=== PATIENT | female | born 1965 | race Caucasian/White ===

== ENCOUNTER 2017-02-22 14:59 | Emergency (ER) | payer MEDICAID ==
[~2017-02-22] VITALS: Ht 149.9 cm; Wt 86.2 kg
[~2017-02-22 14:59] MED LIST: ASPI81CT89 PO; METF1000 PO
[2017-02-22 15:29] VITALS: BP 130/79
[2017-02-22] MEDS ORDERED: INSU100S22 SUBQ (15:34)
[2017-02-22] MEDS ORDERED: GABA300C PO (15:34)
[2017-02-22] MEDS ORDERED: GLIP5TAB13 PO (15:34)
--- NOTE | 2017-02-22 16:44 | NUR ---
Patient to bed 04.
--- NOTE | 2017-02-22 16:46 | NUR ---
51F BIB FAMILY C/O LOWER ABDOMINAL PAIN, BURNING, RADIATES UP MID-ABDOMEN, 07/02 X 1 WEEK; PT C/O NAUSEA & DIARRHEA, BUT DENIES VOMITING AT THIS TIME; PT STATES HAD 1 EPISODE OF DIARRHEA TODAY; ABDOMEN SOFT, NON-TENDER, ACTIVE BOWEL SOUNDS X 4 QUADRANTS; PT STATES HAS URINARY SYMPTOMS, URINARY INCONTINENCE, FREQUENCY, URGENCY & PAINFUL URINATION X 1 WEEK; PT A&OX4, PERRLA, BL LUNG SOUNDS CLEAR, RR EVEN/UNLABORED, SKIN IS WARM/DRY/INTACT AT THIS TIME; PT RESTING IN BED W/ HOB ELEVATED AND IN LOWEST POSITION; POSITIONED FOR COMFORT; ER MD MADE AWARE OF STATUS. WILL CONTINUE TO MONITOR.
--- NOTE | 2017-02-22 16:47 | NUR ---
Dr. Gil evaluating patient at bedside.
[2017-02-22 17:25] LABS: ANION GAP 12.6 (8-16); CALCIUM 9.5 mg/dL (8.5-10.1); CARBON DIOXIDE 27.8 mmol/L (21-32); CREATININE 0.7 mg/dL (0.6-1.3); POTASSIUM 3.4 mmol/L (3.5-5.1)
[2017-02-22] MEDS ORDERED: LEVOFLOXACIN 500 MG TAB PO ONE (17:45)
[2017-02-22] MEDS ORDERED: PHENAZOPYRIDINE 100 MG TAB PO ONE (17:45)
[2017-02-22] MEDS ORDERED: ONDANSETRON 4 MG ODT PO ONE (17:45)
[2017-02-22 18:21] VITALS: BP 138/74
--- NOTE | 2017-02-22 18:21 | NUR ---
Patient discharged with v/s stable. Written and verbal after care instructions given and explained. Patient alert, oriented and verbalized understanding of instructions. Ambulatory with steady gait. All questions addressed prior to discharge. ID band removed. Patient advised to follow up with PMD. Rx of PHENAZOPYRIDINE HYDROCHLORIDE 100MG TAB & LEVAQUIN 500MG given. Patient educated on indication of medication including possible reaction and side effects. Opportunity to ask questions provided and answered.
== END 2017-02-22 18:21 | disposition home or self-care (01) ==
LOC: MED 14:59
DX: N39.0 Urinary tract infection, site not specified (principal); E11.9 Type 2 diabetes mellitus without complications; I10 Essential (primary) hypertension
CPT/HCPCS: 36415; 80048; 81002; 81025; 82948; 99284; S0119

== ENCOUNTER 2017-03-08 09:26 | Emergency (ER) | payer MEDICAID ==
[~2017-03-08] VITALS: Ht 154.9 cm; Wt 85.3 kg
[~2017-03-08 09:26] MED LIST changes: +GABA300C PO; +GLIP5TAB13 PO; +INSU100S22 SUBQ
[2017-03-08 09:35] VITALS: BP 110/66
--- NOTE | 2017-03-08 09:40 | NUR ---
Pt to bed 6.
--- NOTE | 2017-03-08 09:42 | NUR ---
52/F presents to ED for evaluation of left lower abdominal pain x 2 days, starting on Monday. Pt describes a sharp pain, radiating to lower back and down left leg, constant, 9/10. Pt states she took Tylenol and it helped with pain for awhile but then the pain returned. C/o nausea, and vomiting x1 this morning. No active vomiting noted at this time. Skin warm and dry, normal in color for ethnicity. Abdomen soft, tender with palpation, active bowel sounds x 4 quadrants. Patient is AOX4, kazakh speaking. VSS.
--- NOTE | 2017-03-08 09:43 | NUR ---
Pt ambulated to restroom to provide UA.
--- NOTE | 2017-03-08 09:51 | NUR ---
Pt taken to CT via w/c.
--- NOTE | 2017-03-08 10:09 | NUR ---
Pt returned from CT via w/c.
[2017-03-08] MEDS: NACL 0.9% 1,000 ML IV SCH (10:12)
[2017-03-08 10:16] LABS: BILIRUBIN,URINE NEGATIVE (NEGATIVE); BLOOD, URINE NEGATIVE (NEGATIVE); COLOR,URINE YELLOW (YELLOW); LEUKOCYTE ESTERASE ,URINE NEGATIVE (NEGATIVE); NITRITE, URINE NEGATIVE (NEGATIVE); PH,URINE 6.5 (5.0-9.0); PROTEIN,URINE NEGATIVE (NEGATIVE); UGLUCOSE 3+ (NEGATIVE); UROBILINOGEN,URINE 0.2 EU/dL (0.2 - 1)
[2017-03-08] MEDS: HYDROmorphone PFS 2 MG/ML SYR IVP ONE (10:21)
[2017-03-08] MEDS: ONDANSETRON 4 MG/2 ML VIAL IVP ONE (10:22)
[2017-03-08 10:25] LABS: BASOPHILS # (AUTO) 0.2 K/uL (0.00-0.22); BASOPHILS % (AUTO) 3.2 % (0.0-2.0); EOSINOPHILS # (AUTO) 0.1 K/uL (0-0.4); EOSINOPHILS % (AUTO) 1.8 % (0.0-4.0); HEMATOCRIT 39.6 % (36-48); HEMOGLOBIN 12.6 g/dL (12.0-16.0); LYMPHOCYTES # (AUTO) 2.2 K/uL (2.5-16.5); LYMPHOCYTES % (AUTO) 33.6 % (20.5-51.1); MEAN CORPUSCULAR HEMOGLOBIN 26 pg (27-31); MEAN CORPUSCULAR HGB CONC 32 g/dL (33-37); MEAN CORPUSCULAR VOLUME 82 fL (80-94); MONOCYTES # (AUTO) 0.6 K/uL (0.8-1.0); MONOCYTES % (AUTO) 8.7 % (1.7-9.3); NEUTROPHILS # (AUTO) 3.5 K/uL (1.8-7.7); NEUTROPHILS % (AUTO) 52.7 % (42.2-75.2); PLATELET COUNT (AUTO) 316 K/uL (140-450); RED BLOOD CELL COUNT(AUTO) 4.86 MIL/uL (4.20-5.40); RED CELL DISTRIBUTION WIDTH 12.6 % (11.6-13.7); WHITE BLOOD COUNT (AUTO) 6.6 K/uL (4.8-10.8)
[2017-03-08 10:31] LABS: ALBUMIN 3.4 g/dL (3.4-5.0); CALCIUM 8.8 mg/dL (8.5-10.1); CARBON DIOXIDE 25.8 mmol/L (21-32); CREATININE 0.8 mg/dL (0.6-1.3); TOTAL BILIRUBIN 0.2 mg/dL (0.0-1.0); TOTAL PROTEIN, SERUM 7.9 g/dL (6.4-8.2)
[2017-03-08 10:33] LABS: APPEARANCE,URINE HAZY (CLEAR)
[2017-03-08 10:34] LABS: BACTERIA,URINE 1+ /HPF (None Seen); RBC,URINE NONE SEEN /HPF (0-5); SQUAMOUS EPITHELIAL CELL,UR 0-3 (FEW) /LPF (0-3 (FEW)); WBC,URINE 0-5 (RARE) /HPF (0-5)
[2017-03-08 10:35] LABS: ANION GAP 13.1 (8-16); POTASSIUM 3.9 mmol/L (3.5-5.1)
--- NOTE | 2017-03-08 10:47 | NUR ---
Patient appears to be resting comfortably in bed. Vital Signs within normal limits. Respirations even and unlabored.
[2017-03-08] MEDS ORDERED: cefTRIAXone 1,000 MG VIAL ONE (11:35)
[2017-03-08] MEDS: INSULIN HUMAN REGULAR 100 UNITS/ML 10 ML VIAL SUBQ ONE (11:42)
[2017-03-08] MEDS: NACL 0.9% 1,000 ML IV ONE (11:43)
--- NOTE | 2017-03-08 12:33 | NUR ---
IV removed, catheter intact and site benign. Applied folded 4x4 gauze and tape to stop bleeding.
[2017-03-08 12:42] VITALS: BP 137/84
--- NOTE | 2017-03-08 12:43 | NUR ---
Patient discharged with v/s stable. Written and verbal after care instructions given and explained. Patient alert, oriented and verbalized understanding of instructions. Ambulatory with steady gait. All questions addressed prior to discharge. ID band removed. Patient advised to follow up with PMD. Rx of NORCO AND ZOFRAN given. Patient educated on indication of medication including possible reaction and side effects. Opportunity to ask questions provided and answered.
== END 2017-03-08 12:43 | disposition home or self-care (01) ==
LOC: MED 09:26
DX: R10.32 Left lower quadrant pain (principal); E11.65 Type 2 diabetes mellitus with hyperglycemia; I10 Essential (primary) hypertension; Z90.49 Acquired absence of other specified parts of digestive tract
CPT/HCPCS: 36415; 74176; 80053; 81001; 81025; 82009; 82150; 82948; 83690; 85025; 87086; 96361; 96365; 96372; 96375; 99285; J0696; J1170; J1815; J2405; J7030; J7060

== ENCOUNTER 2017-08-08 14:59 | Emergency (ER) | payer MEDICAID ==
[~2017-08-08] VITALS: Ht 149.9 cm; Wt 94.8 kg
[2017-08-08 15:25] VITALS: BP 134/72
--- NOTE | 2017-08-08 16:10 | NUR ---
DR HERNANDEZ EVALUATING AAO PT AT BEDSIDE
--- NOTE | 2017-08-08 16:10 | NUR ---
PATIENT TO BED 12 AT THIS TIME.
--- NOTE | 2017-08-08 16:13 | NUR ---
PT PRESENTS TO ER W/C/O ABDOMINAL PAIN SINCE LAST NOC. HX DM. DENIES N/V/D; SKIN IS PINK/WARM/DRY; AAOX4 WITH EVEN AND STEADY GAIT; LUNGS CLEAR BL; HR EVEN AND REGULAR; PT DENIES ANY FEVER, CP, SOB, OR COUGH AT THIS TIME; PATIENT STATES PAIN OF 10/10 AT THIS TIME; VSS; PATIENT POSITIONED FOR COMFORT; HOB ELEVATED; BEDRAILS UP X2; BED DOWN. ER MD MADE AWARE OF PT STATUS.
[2017-08-08] MEDS ORDERED: MORPHINE SULFATE 4 MG/ML SYR IVP ONE (16:15)
[2017-08-08] MEDS ORDERED: ONDANSETRON 4 MG/2 ML VIAL IVP ONE (16:15)
[2017-08-08] MEDS ORDERED: NACL 0.9% 1,000 ML IV ONE (16:15)
--- NOTE | 2017-08-08 16:32 | NUR ---
PT TAKEN OFF THE UNIT FOR CT [facility]
[2017-08-08 16:34] LABS: BASOPHILS # (AUTO) 0.6 K/uL (0.00-0.22); EOSINOPHILS # (AUTO) 0.2 K/uL (0-0.4); HEMATOCRIT 34.6 % (36-48); HEMOGLOBIN 11.2 g/dL (12.0-16.0); LYMPHOCYTES # (AUTO) 3.4 K/uL (2.5-16.5); MEAN CORPUSCULAR HEMOGLOBIN 27 pg (27-31); MEAN CORPUSCULAR HGB CONC 33 g/dL (33-37); MEAN CORPUSCULAR VOLUME 83 fL (80-94); MONOCYTES # (AUTO) 1.2 K/uL (0.8-1.0); NEUTROPHILS # (AUTO) 5.1 K/uL (1.8-7.7); PLATELET COUNT (AUTO) 360 K/uL (140-450); RED BLOOD CELL COUNT(AUTO) 4.16 MIL/uL (4.20-5.40); RED CELL DISTRIBUTION WIDTH 12.8 % (11.6-13.7); WHITE BLOOD COUNT (AUTO) 10.5 K/uL (4.8-10.8)
[2017-08-08 16:37] LABS: BILIRUBIN,URINE NEGATIVE (NEGATIVE); BLOOD, URINE NEGATIVE (NEGATIVE); COLOR,URINE YELLOW (YELLOW); LEUKOCYTE ESTERASE ,URINE TRACE (NEGATIVE); NITRITE, URINE NEGATIVE (NEGATIVE); UGLUCOSE TRACE (NEGATIVE)
[2017-08-08 16:50] LABS: ANION GAP 9.4 (8-16); CARBON DIOXIDE 28.1 mmol/L (21-32); CREATININE 0.9 mg/dL (0.6-1.3); POTASSIUM 3.5 mmol/L (3.5-5.1)
[2017-08-08 16:54] LABS: PROTHROMBIN TIME 9.5 secs (10.8-13.4)
[2017-08-08 16:55] LABS: ALBUMIN 3.9 g/dL (3.4-5.0); TOTAL BILIRUBIN 0.2 mg/dL (0.0-1.0)
[2017-08-08 17:02] LABS: APPEARANCE,URINE HAZY (CLEAR); RBC,URINE NONE SEEN /HPF (0-5)
[2017-08-08] MEDS ORDERED: cefTRIAXone 1,000 MG VIAL ONE (17:27)
[2017-08-08 18:01] VITALS: BP 139/72
--- NOTE | 2017-08-08 18:01 | NUR ---
Patient discharged with v/s stable. Written and verbal after care instructions given and explained. Patient alert, oriented and verbalized understanding of instructions. Ambulatory with steady gait. All questions addressed prior to discharge. ID band removed. Patient advised to follow up with PMD. Rx of TRAMADOL, KEFLEX given. Patient educated on indication of medication including possible reaction and side effects. Opportunity to ask questions provided and answered.
== END 2017-08-08 18:01 | disposition home or self-care (01) ==
LOC: MED 14:59
DX: N39.0 Urinary tract infection, site not specified (principal); E11.9 Type 2 diabetes mellitus without complications; I10 Essential (primary) hypertension; Z79.84 Long term (current) use of oral hypoglycemic drugs; Z79.82 Long term (current) use of aspirin; Z79.899 Other long term (current) drug therapy
CPT/HCPCS: 36415; 74176; 80053; 81001; 82150; 82948; 83690; 85025; 85610; 85730; 87086; 96365; 96375; 99285; J0696; J2270; J2405; J7030; J7060

== ENCOUNTER 2017-12-09 13:15 | Emergency (ER) | payer MEDICAID ==
[~2017-12-09] VITALS: Ht 149.9 cm; Wt 97.7 kg
[2017-12-09 13:42] VITALS: BP 111/67
--- NOTE | 2017-12-09 13:57 | NUR ---
Patient ambulated to bed 11. RN evaluating patient at bedside.
--- NOTE | 2017-12-09 14:10 | NUR ---
ASSUMED PATIENT CARE, CONCUR WITH TRIAGE. NURSING ASSESSMENT COMPLETED. SEEN AND EVALUATED BY , WILL COMPLETED.
[2017-12-09] MEDS ORDERED: NACL 0.9% 1,000 ML IV ONE (14:15)
[2017-12-09] MEDS ORDERED: KETOROLAC 30 MG/ML VIAL IVP ONE (14:15)
[2017-12-09] MEDS ORDERED: ONDANSETRON 4 MG/2 ML VIAL IVP ONE (14:15)
--- NOTE | 2017-12-09 15:55 | NUR ---
Patient discharged with v/s stable. Written and verbal after care instructions given and explained. Patient alert, oriented and verbalized understanding of instructions. Ambulatory with steady gait. All questions addressed prior to discharge. ID band removed. Patient advised to follow up with PMD. Rx of Tramadol and Zofran given. Patient educated on indication of medication including possible reaction and side effects. Opportunity to ask questions provided and answered.
[2017-12-09 15:57] VITALS: BP 105/60
== END 2017-12-09 15:55 | disposition home or self-care (01) ==
LOC: MED 13:15
DX: A08.4 Viral intestinal infection, unspecified (principal); E11.9 Type 2 diabetes mellitus without complications; I10 Essential (primary) hypertension
CPT/HCPCS: 36415; 82948; 87081; 87804; 96361; 96374; 96375; 99284; J1885; J2405; J7030

== ENCOUNTER 2018-02-10 12:41 | Inpatient (IN) | payer MEDICAID ==
[~2018-02-10] VITALS: Ht 152.4 cm; Wt 102.5 kg
[2018-02-10 12:46] VITALS: BP 126/62
--- NOTE | 2018-02-10 12:57 | NUR ---
PT AMBULATES TO BED 11
--- NOTE | 2018-02-10 13:00 | NUR ---
52f bib self with c/o 10/10 "sharp" intermittent radiating to left posterior shoulder left sided chest pain x yesterday. Pt also reports of dizziness and dry cough. Pt also reports of pain increases when coughing. Pt denies any SOB or recent fevers. Pt is aox4. No acute neuro deficits noted. RR are even and tachypneic. Skin is warm/dry/color appriopriate for ethnicity. No acute distress noted. Awaiting er md jarrett. Pt cardiac, blood pressure, and pulse ox monitoring. Will continue to monitor.
[2018-02-10] MEDS ORDERED: ALBUTEROL SULFATE/IPRATROPIU 3 ML SOL IH ONE (13:30)
--- NOTE | 2018-02-10 13:57 | NUR ---
rt by bedside, administering breathing treatment. pt tolerating well.
[2018-02-10 13:58] LABS: BASOPHILS # (AUTO) 0.1 K/uL (0.00-0.22); BASOPHILS % (AUTO) 0.7 % (0.0-2.0); EOSINOPHILS # (AUTO) 0.1 K/uL (0-0.4); HEMATOCRIT 32.8 % (36-48); HEMOGLOBIN 10.4 g/dL (12.0-16.0); LYMPHOCYTES # (AUTO) 2.4 K/uL (2.5-16.5); LYMPHOCYTES % (AUTO) 31.4 % (20.5-51.1); MEAN CORPUSCULAR HEMOGLOBIN 25 pg (27-31); MEAN CORPUSCULAR HGB CONC 32 g/dL (33-37); MEAN CORPUSCULAR VOLUME 80.2 fL (80-94); MONOCYTES # (AUTO) 0.6 K/uL (0.8-1.0); MONOCYTES % (AUTO) 7.8 % (1.7-9.3); NEUTROPHILS # (AUTO) 4.4 K/uL (1.8-7.7); NEUTROPHILS % (AUTO) 58.1 % (42.2-75.2); PLATELET COUNT (AUTO) 360 K/uL (140-450); RED BLOOD CELL COUNT(AUTO) 4.09 MIL/uL (4.20-5.40); RED CELL DISTRIBUTION WIDTH 14.8 % (11.6-13.7); WHITE BLOOD COUNT (AUTO) 7.5 K/uL (4.8-10.8)
--- NOTE | 2018-02-10 14:55 | NUR ---
patient requesting pain medication. er md jamil notified. vss. will continue to monitor.
--- NOTE | 2018-02-10 15:20 | NUR ---
notified patient that there is a delay in lab results per cardiac cath lab radiology technologist. er md jamil aware and charge loader john aware. pt verbalized understanding. will continue to monitor.
--- NOTE | 2018-02-10 15:28 | NUR ---
patient requesting pain medication. er md jamil notified. vss. will continue to monitor.
[2018-02-10] MEDS ORDERED: KETOROLAC 60 MG/2 ML VIAL IM ONE (15:55)
--- NOTE | 2018-02-10 17:07 | NUR ---
PATIENT WITH NO COMPLAITNS; PT LAYING SUPINE IN GURNEY RESTING WITH EYES CLOSED. WILL CONTINUE TO MONITOR.
[2018-02-10] MEDS ORDERED: DOCUSATE SODIUM 100 MG GELCAP PO PRN (17:55)
[2018-02-10] MEDS ORDERED: ONDANSETRON 4 MG/2 ML VIAL IM/IVP PRN (17:55)
[2018-02-10] MEDS: NACL 0.9% 1,000 ML IV SCH (17:55)
[2018-02-10] MEDS ORDERED: ACETAMINOPHEN 325 MG TAB PO PRN (17:55)
--- NOTE | 2018-02-10 18:30 | NUR ---
PT ADMITTED TO TELE. BEDSIDE REPORT GIVEN BY ER NURSE NELY. VS: TEMP 98.4, HR 79, BP 113/52, RR 18, O2 SAT 98% ON RA. PT AMBULATED TO BED FROM [facility] WITH STEADY GAIT. PT IS AAOX4. PT DENIES CHEST PAIN. NPO STATUS. ORIENTED PT TO USE CALL LIGHT. VERBALIZED UNDERSTANDING. MRSA SWAB DONE. BED IN LOW POSITION, WHEELS LOCKED. WILL CONTINUE TO MONITOR.
--- NOTE | 2018-02-10 18:33 | NUR ---
Patient will be admitted to care of Gallo. Admited to Tele. Will go to room 120A. Belongings list completed. Bedside report to Stefany VAZ.
[2018-02-10 18:59] LABS: ALBUMIN 3.2 g/dL (3.4-5.0); ANION GAP 11.2 (8-16); CARBON DIOXIDE 26.7 mmol/L (21-32); CREATININE 0.6 mg/dL (0.6-1.3); POTASSIUM 3.9 mmol/L (3.5-5.1); TOTAL BILIRUBIN 0.2 mg/dL (0.0-1.0)
--- NOTE | 2018-02-10 19:27 | NUR ---
ENDORSED PT TO STRAP BUCKLER NURSE DONG AT BEDSIDE FOR CONTINUITY OF CARE. PT IN STABLE CONDITION.
[2018-02-10 19:30] VITALS: BP 103/46
--- NOTE | 2018-02-10 19:30 | NUR ---
RECEIVED REPORT FROM DAY SHIFT NURSE. PT IN BED, AAOX4. NO DISTRESS NOTED. IV TO LEFT HAND, PATENT AND INTACT. NO C/O PAIN AT THIS TIME. PT ASKED FOR SNACK. PT IS ON CCHO DIET. SNACK PROVIDED. DISCUSSED PLAN OF CARE, PT VERBALIZED UNDERSTANDING. SAFETY PRECAUTION IN PLACE. CALL LIGHT WITHIN REACH.
[2018-02-10] MEDS ORDERED: KETOROLAC 30 MG/ML VIAL IM ONE (19:55)
[2018-02-10] MEDS ORDERED: NITROGLYCERIN 0.4 MG TAB SL ONE (19:55)
[2018-02-10 20:00] LABS: FREE T4 (FREE THYROXINE) 0.97 ng/dL (0.76-1.46); PHOSPHORUS 2.9 mg/dL (2.5-4.9); THYROID STIMULATING HORMONE 0.55 uIU/mL (0.34-3.74)
--- NOTE | 2018-02-10 20:25 | NUR ---
PT C/O CHEST PAIN. DR. ENRIQUEZ MADE AWARE AND ORDERED KETOROLAC 30 MG IM AND NITROGLYCERIN 0.[address] ENRIQUEZ MADE AWARE OF PT'S BP 103/46. ORDERED TO HOLD NITROGLYCERIN.
[2018-02-10] MEDS: glipiZIDE 5 MG TAB PO SCH (20:33)
[2018-02-10] MEDS: metFORMIN 500 MG TAB PO SCH (20:33)
[2018-02-10] MEDS ORDERED: INSULIN LANTUS 100 UNITS/ML 10 ML VIAL SUBQ SCH (21:00)
[2018-02-10] MEDS: HYDROcodone/APAP 7.5/325 MG 1 TAB PO PRN (23:54)
--- NOTE | 2018-02-10 23:57 | NUR ---
PT C/O PAIN TO BOTH CALVES 04/01. DR. ENRIQUEZ MADE AWARE. NORCO 7.5/325 MG GIVEN.
[2018-02-11] VITALS: BP 111/53
--- NOTE | 2018-02-11 02:10 | NUR ---
PT SLEEPING BUT EASILY AROUSABLE. NO S/S OF PAIN OR DISCOMFORT. NO S/S OF RESP DISTRESS. CALL LIGHT WITHIN REACH.
--- NOTE | 2018-02-11 03:30 | NUR ---
SCD'S APPLIED. PT TOLERATED WELL. NO C/O PAIN.
[2018-02-11 04:00] VITALS: BP 116/54
--- NOTE | 2018-02-11 05:20 | NUR ---
PT SLEEPING BUT WAKES EASILY. NO S/S OF PAIN OR DISCOMFORT. RESP EVEN AND UNLABORED. CALL LIGHT WITHIN REACH.
--- NOTE | 2018-02-11 07:10 | NUR ---
ENDORSED PT TO DAY SHIFT NURSE. PT IN STABLE CONDITION.
--- NOTE | 2018-02-11 07:11 | NUR ---
RECEIVED REPORT FROM NEGOTIATOR NURSE AT BEDSIDE FOR CONTINUITY OF CARE. PATIENT ALERT AND ORIENTED. NO DISTRESS NOTED ON ROOM AIR AT THE MOMENT. IV PATENT, ASYMPTOMATIC, AND INTACT, INFUSING IVF WELL. INITIAL ASSESSMENT DONE. SKIN INTACT. SAFETY PRECAUTION IN PLACE, CALL LIGHT WITHIN REACH. WILL CONTINUE TO MONITOR PATIENT.
[2018-02-11 08:00] VITALS: BP 111/55
[2018-02-11 08:21] LABS: BASOPHILS # (AUTO) 0.1 K/uL (0.00-0.22); BASOPHILS % (AUTO) 0.9 % (0.0-2.0); EOSINOPHILS # (AUTO) 0.2 K/uL (0-0.4); EOSINOPHILS % (AUTO) 3.4 % (0.0-4.0); HEMATOCRIT 30.6 % (36-48); HEMOGLOBIN 9.7 g/dL (12.0-16.0); LYMPHOCYTES # (AUTO) 2.7 K/uL (2.5-16.5); LYMPHOCYTES % (AUTO) 40.1 % (20.5-51.1); MEAN CORPUSCULAR HEMOGLOBIN 26 pg (27-31); MEAN CORPUSCULAR HGB CONC 32 g/dL (33-37); MEAN CORPUSCULAR VOLUME 81.2 fL (80-94); MONOCYTES # (AUTO) 0.6 K/uL (0.8-1.0); MONOCYTES % (AUTO) 9.4 % (1.7-9.3); NEUTROPHILS # (AUTO) 3.1 K/uL (1.8-7.7); NEUTROPHILS % (AUTO) 46.2 % (42.2-75.2); PLATELET COUNT (AUTO) 332 K/uL (140-450); RED BLOOD CELL COUNT(AUTO) 3.77 MIL/uL (4.20-5.40); RED CELL DISTRIBUTION WIDTH 14.9 % (11.6-13.7); WHITE BLOOD COUNT (AUTO) 6.7 K/uL (4.8-10.8)
[2018-02-11 08:45] LABS: ANION GAP 9.5 (8-16); CARBON DIOXIDE 27.4 mmol/L (21-32); CREATININE 0.7 mg/dL (0.6-1.3); POTASSIUM 3.9 mmol/L (3.5-5.1)
[2018-02-11 08:56] LABS: PHOSPHORUS 3.5 mg/dL (2.5-4.9)
[2018-02-11] MEDS ORDERED: PANTOPRAZOLE 40 MG TABEC PO SCH (09:00)
[2018-02-11] MEDS ORDERED: LISINOPRIL 5 MG TAB PO SCH ×2 (09:00)
[2018-02-11] MEDS ORDERED: METOPROLOL 25 MG TAB PO SCH (09:00)
[2018-02-11] MEDS ORDERED: ASPIRIN 81 MG TAB.CHEW PO SCH (09:00)
[2018-02-11] MEDS: HYDROcodone/APAP 7.5/325 MG 1 TAB PO PRN ×3 (09:03→17:42)
--- NOTE | 2018-02-11 09:03 | NUR ---
ORDERED MEDICATIONS ADMINISTERED. PT C/O CHEST PAIN 04/01, PRN NORCO ADMINISTERED. PATIENT TOLERATED THEM WELL. PATIENT NOW RESTING IN BED, NO SIGNS OF DISTRESS NOTED, PATIENT DENIES PAIN AT THIS TIME. SAFETY PRECAUTION IN PLACE, CALL LIGHT WITHIN REACH. WILL CONTINUE TO MONITOR PATIENT.
[2018-02-11] MEDS: metFORMIN 500 MG TAB PO SCH (09:04)
[2018-02-11] MEDS: GABAPENTIN 300 MG CAP PO SCH ×3 (09:05→17:33)
[2018-02-11] MEDS: glipiZIDE 5 MG TAB PO SCH (09:05)
[2018-02-11] MEDS: KETOROLAC 15 MG/ML VIAL IVP PRN ×2 (09:28→15:28)
--- NOTE | 2018-02-11 09:28 | NUR ---
PT C/O CHEST PAIN 08/01, INFORMED, NEW ORDER FOR TORADOL PRN, PRN TORADOL ADMINISTERED. PATIENT TOLERATED IT WELL. PATIENT NOW RESTING IN BED, NO SIGNS OF DISTRESS NOTED, PATIENT DENIES PAIN AT THIS TIME. SAFETY PRECAUTION IN PLACE, CALL LIGHT WITHIN REACH. WILL CONTINUE TO MONITOR PATIENT. Addendum: 02/11/18 at 2026 by Adams Dyer RN PATIENT MEDICATED FOR PAIN AT THIS TIME. NOT DENIES PAIN.
--- NOTE | 2018-02-11 10:16 | NUR ---
PATIENT HAS BEEN SCREENED AND CATEGORIZED HIGH NUTRITION RISK. PATIENT WILL BE SEEN WITHIN 1-2 DAYS OF ADMISSION. 02/11/18 - 02/12/18 RADHA TAM MBA, RD
[2018-02-11] MEDS ORDERED: INSULIN LISPRO SLIDING SCALE 100 UNITS/ML VIAL SUBQ PRN (10:50)
[2018-02-11] MEDS ORDERED: DEXTROSE 50% 50 ML SYR IVP PRN (10:50)
--- NOTE | 2018-02-11 11:30 | NUR ---
BLOOD SUGAR 137, NO COVERAGE GIVEN. PATIENT NOW RESTING IN BED WATCHING VIDEOS ON HER CELL PHONE, NO SIGNS OF DISTRESS NOTED, PATIENT C/O 6/10 CHEST PAIN, INFORMED PATIENT OF NEXT DUE MEDICATIONS, PATIENT VERBALIZED UNDERSTANDING. SAFETY PRECAUTION IN PLACE, CALL LIGHT WITHIN REACH, WILL CONTINUE TO MONITOR PATIENT.
[2018-02-11] MEDS: BLOOD GLUCOSE MONITORING 1 DEV DEV FS SCH ×2 (11:54→16:28)
[2018-02-11 12:00] VITALS: BP 110/59
[2018-02-11] MEDS: NACL 0.9% 1,000 ML IV SCH (12:46)
--- NOTE | 2018-02-11 15:28 | NUR ---
PT C/O CHEST PAIN 06/01, PRN TORADOL ADMINISTERED. PATIENT TOLERATED IT WELL. PATIENT NOW RESTING IN BED, NO SIGNS OF DISTRESS NOTED, PATIENT MEDICATED FOR PAIN AT THIS TIME. SAFETY PRECAUTION IN PLACE, CALL LIGHT WITHIN REACH. WILL CONTINUE TO MONITOR PATIENT.
[2018-02-11] MEDS ORDERED: FERRIC GLUCONATE 125 MG in NACL 0.9% 100 ML IV SCH (15:30)
[2018-02-11] MEDS ORDERED: guaiFENesin DM 200/20 MG-10 ML 10 ML UDC PO PRN (15:35)
[2018-02-11] MEDS ORDERED: IBUP-2213 PO (15:45)
[2018-02-11] MEDS ORDERED: DEXT5SYR3 PO (15:45)
--- NOTE | 2018-02-11 15:45 | NUR ---
DISCHARGE ORDER IN, PATIENT AWARE. DAUGHTER ALANNA CALLED, SPOKE TO HER ABOUT PATIENT'S IMPENDING DISCHARGE AT 1820. ALANNA VERBALIZED UNDERSTANDING. PATIENT NOW RESTING IN BED, NO SIGNS OF DISTRESS OR SOB NOTED. PATIENT HAD BEEN MEDICATED FOR PAIN. SAFETY PRECAUTION IN PLACE, CALL LIGHT WITHIN REACH, WILL CONTINUE TO MONITOR PATIENT.
[2018-02-11 16:00] VITALS: BP 95/48
--- NOTE | 2018-02-11 17:30 | NUR ---
DISCHARGE INSTRUCTIONS AND EDUCATION GIVEN. PATIENT VERBALIZED UNDERSTANDING. IV REMOVED, IV CATHETER INTACT, MINIMAL BLOOD NOTED. PATIENT WILL NOW CHANGE AND WAIT FOR HER DAUGHTER TO COME PICK HER UP AND TAKE HER HOME.
--- NOTE | 2018-02-11 17:40 | NUR ---
ORDERED MEDICATIONS ADMINISTERED. PT C/O CHEST PAIN 03/01, PRN NORCO ADMINISTERED. PATIENT TOLERATED THEM WELL. PATIENT NOW RESTING IN BED, NO SIGNS OF DISTRESS NOTED, PATIENT DENIES PAIN AT THIS TIME. SAFETY PRECAUTION IN PLACE, CALL LIGHT WITHIN REACH. WILL CONTINUE TO MONITOR PATIENT.
--- NOTE | 2018-02-11 18:10 | NUR ---
PATIENT AMBULATED OFF FLOOR ACCOMPANIED BY DAUGHTER AND RN. PATIENT TOOK ALL HER BELONGINGS WITH HER. PATIENT IN STABLE CONDITION.
[2018-02-11] MEDS ORDERED: SIMVASTATIN 40 MG TAB PO SCH (21:00)
[2018-02-13 06:19] LABS: FOLIC ACID 12.7 ng/mL (>3.0)
[2018-02-13 06:19] LABS: T4 (THYROXINE) 7.8 ug/dL (4.5-12.0)
== END 2018-02-11 18:15 | disposition home or self-care (01) | DRG 243 ==
LOC: MED 12:41 → MTU 17:58
PROVIDERS: ADMIT Family Medicine; ATTEND Family Medicine
DX: K21.9 Gastro-esophageal reflux disease without esophagitis (principal); E11.42 Type 2 diabetes mellitus with diabetic polyneuropathy; D68.59 Other primary thrombophilia; E44.0 Moderate protein-calorie malnutrition; E11.65 Type 2 diabetes mellitus with hyperglycemia; E11.51 Type 2 diabetes mellitus with diabetic peripheral angiopathy without gangrene; M94.0 Chondrocostal junction syndrome [Tietze]; E11.69 Type 2 diabetes mellitus with other specified complication; Z68.41 Body mass index [BMI] 40.0-44.9, adult; I10 Essential (primary) hypertension; D64.9 Anemia, unspecified; E66.9 Obesity, unspecified; Z79.82 Long term (current) use of aspirin; Z79.4 Long term (current) use of insulin; Z79.84 Long term (current) use of oral hypoglycemic drugs; Z82.49 Family history of ischemic heart disease and other diseases of the circulatory system
CPT/HCPCS: 36415; 71045; 80048; 80053; 82550; 82607; 82728; 82746; 82948; 83036; 83540; 83735; 83880; 84100; 84436; 84439; 84443; 84479; 84484; 85025; 85045; 85379; 85610; 85730; 87081; 93005; 94640; 96372; 99285; J1815; J1885; J2916; J7030; J7620; Q0092

== ENCOUNTER 2018-06-18 12:58 | Emergency (ER) | payer MEDICAID ==
[~2018-06-18] VITALS: Ht 149.9 cm; Wt 101.6 kg
[~2018-06-18 12:58] MED LIST changes: +DEXT5SYR3 PO; +IBUP-2213 PO
[2018-06-18 13:07] VITALS: BP 145/106
[2018-06-18] MEDS: KETOROLAC 60 MG/2 ML VIAL IM ONE (14:23)
[2018-06-18 15:37] VITALS: BP 145/106
== END 2018-06-18 15:37 | disposition home or self-care (01) ==
LOC: MED 12:58
DX: R51 Headache (principal); R11.2 Nausea with vomiting, unspecified; R42 Dizziness and giddiness; E11.9 Type 2 diabetes mellitus without complications; I10 Essential (primary) hypertension; Z79.899 Other long term (current) drug therapy
CPT/HCPCS: 81002; 82948; 96372; 99283; J1885

== ENCOUNTER 2018-07-25 11:14 | Emergency (ER) | payer MEDICAID ==
[~2018-07-25] VITALS: Ht 149.9 cm; Wt 99.6 kg
[2018-07-25 11:41] VITALS: BP 143/85
[2018-07-25 11:53] VITALS: BP 107/63
--- NOTE | 2018-07-25 16:04 | NUR ---
CALLED AT THE LOBBY BY SHANNA MOSHER, NO ANSWER; LWBS
== END 2018-07-25 16:04 | disposition left against medical advice (07) ==
LOC: MED 11:14
DX: R11.2 Nausea with vomiting, unspecified (principal); R19.7 Diarrhea, unspecified; R10.9 Unspecified abdominal pain; R51 Headache; Z53.21 Procedure and treatment not carried out due to patient leaving prior to being seen by health care provider

== ENCOUNTER 2019-11-19 19:50 | Emergency (ER) | payer MEDICAID ==
[~2019-11-19] VITALS: Ht 154.9 cm; Wt 77.1 kg
[~2019-11-19 19:50] MED LIST changes: +ASPI-1718 PO; -ASPI81CT89 PO
--- NOTE | 2019-11-19 20:00 | NUR ---
TO LOBBY A/W BED AMBULATORY
[2019-11-19 20:02] VITALS: BP 159/76
--- NOTE | 2019-11-19 20:49 | NUR ---
TO BED #11 AMBULATORY
--- NOTE | 2019-11-19 21:24 | NUR ---
DR. AMIRA RON AT BEDSIDE.
[2019-11-19] MEDS ORDERED: ONDANSETRON 4 MG ODT PO ONE (21:35)
[2019-11-19] MEDS ORDERED: IBUPROFEN 800 MG TAB PO ONE (21:35)
[2019-11-19] MEDS ORDERED: OSELTAMIVIR PHOSPHATE 75 MG CAP PO ONE (21:35)
--- NOTE | 2019-11-19 21:45 | NUR ---
MEDICATED WITH 4 MG ODT ZOFRAN FOR NAUSEA. WILL WAIT FOR EFFECTIVENESS BEFORE MEDICATING OTHER PO MEDS.
[2019-11-19] MEDS ORDERED: PROCHLORPERAZINE 10 MG/2 ML VIAL IVP ONE (22:05)
[2019-11-19] MEDS ORDERED: NACL 0.9% 1,000 ML IV ONE (22:05)
[2019-11-19] MEDS ORDERED: diphenhydrAMINE 50 MG/ML VIAL IVP ONE (22:05)
--- NOTE | 2019-11-19 22:10 | NUR ---
PT REPORTS SOME RELIFE FROM NAUSEA. MEDICATED WITH PO TAMIFLU AND 600 MG IBUPROFEN. WILL REASSESS.
--- NOTE | 2019-11-19 22:15 | NUR ---
DR. COLLIER GAVE VERBAL ORDERS TO START IV AND FLUIDS IF PT IS STILL TACHYCARDIC. HR 106. WILL START IV AND GIVE MEDICATION ORDERED.
--- NOTE | 2019-11-19 22:40 | NUR ---
MEDICATED WITH COMPAZINE 10 MG IVP AND BENADRYL 25 MG IVP FOR 8 DIAZ. WILL REASSESS.
--- NOTE | 2019-11-19 23:00 | NUR ---
AWAKE, ALERT, RESTING IN BED WITH VSS. HR 95. PT REPORTS PAIN RELIEF; 0/10. STATES DIAZ IS GONE. FLUIDS STILL RUNNING. DR. COLLIER NOTIFIED.
[2019-11-20 00:09] VITALS: BP 118/49
--- NOTE | 2019-11-20 00:09 | NUR ---
DPatient discharged with v/s stable. Written and verbal after care instructions given and explained. Patient alert, oriented and verbalized understanding of instructions. Ambulatory with steady gait. All questions addressed prior to discharge. ID band removed. Patient advised to follow up with PMD. Rx of Zofran, Motrin, Promethazine and Tamiflu given. Patient educated on indication of medication including possible reaction and side effects. Opportunity to ask questions provided and answered.
== END 2019-11-20 00:09 | disposition home or self-care (01) ==
LOC: MED 19:50
DX: B34.9 Viral infection, unspecified (principal); J11.1 Influenza due to unidentified influenza virus with other respiratory manifestations; I10 Essential (primary) hypertension; E11.9 Type 2 diabetes mellitus without complications; Z98.890 Other specified postprocedural states
CPT/HCPCS: 71045; 96361; 96374; 96375; 99283; J0780; J1200; J7030; Q0162

== ENCOUNTER 2020-10-15 04:15 | Emergency (ER) | payer MEDICAID ==
[~2020-10-15] VITALS: Ht 154.9 cm; Wt 99.8 kg
[~2020-10-15 04:15] MED LIST changes: -ASPI-1718 PO; +ASPI-1822 PO
[2020-10-15 04:31] VITALS: BP 111/65
--- NOTE | 2020-10-15 05:00 | NUR ---
55 Y/O F PRESENTS TO ED WITH C/O COUGH, BODY ACHES, AND DIFFICULTY BREATHING X2 WEEKS. PT COVID+. O2 SAT 97% RA. DRY, NON-PRODUCTIVE COUGH.
--- NOTE | 2020-10-15 05:05 | NUR ---
INFLUENZA AND ELIZABETH COLLECTED. SPECIMENS TAKEN TO LAB.
[2020-10-15] MEDS ORDERED: ACETAMINOPHEN EXTRA STRENGTH 500 MG TAB PO ONE (05:20)
[2020-10-15] MEDS ORDERED: ALBUTEROL SULFATE/IPRATROPIU 3 ML SOL IH ONE (05:20)
--- NOTE | 2020-10-15 06:05 | NUR ---
ATTEMPTED X2 TO DRAW BLOOD, UNSUCCESSFUL. LAB CALLED TO DRAW.
--- NOTE | 2020-10-15 06:28 | NUR ---
UNABLE TO OBTAIN ABG, NURSE NOTIFIED, DAY SHIFT RT NOTIFIED.
[2020-10-15 06:53] LABS: BASOPHILS % (AUTO) 0.3 % (0.0-2.0); HEMATOCRIT 36.1 % (36-48); HEMOGLOBIN 11.6 g/dL (12.0-16.0); LYMPHOCYTES # (AUTO) 1.4 K/uL (2.5-16.5); LYMPHOCYTES % (AUTO) 25.9 % (20.5-51.1); MEAN CORPUSCULAR HEMOGLOBIN 25 pg (27-31); MEAN CORPUSCULAR HGB CONC 32 g/dL (33-37); MEAN CORPUSCULAR VOLUME 78.4 fL (80-94); MONOCYTES # (AUTO) 0.4 K/uL (0.8-1.0); MONOCYTES % (AUTO) 7.2 % (1.7-9.3); NEUTROPHILS # (AUTO) 3.5 K/uL (1.8-7.7); NEUTROPHILS % (AUTO) 66.6 % (42.2-75.2); PLATELET COUNT (AUTO) 239 K/uL (140-450); RED CELL DISTRIBUTION WIDTH 14.9 % (11.6-13.7); WHITE BLOOD COUNT (AUTO) 5.3 K/uL (4.8-10.8)
[2020-10-15 07:52] LABS: ANION GAP 18.2 (8-16); CARBON DIOXIDE 20.4 mmol/L (21-32); POTASSIUM 3.6 mmol/L (3.5-5.1)
[2020-10-15 07:53] LABS: ALBUMIN 3.4 g/dL (3.4-5.0); CREATININE 0.9 mg/dL (0.6-1.3); TOTAL BILIRUBIN 0.2 mg/dL (0.0-1.0)
[2020-10-15] MEDS ORDERED: AZITHROMYCIN 250 MG TAB PO SCH (08:13)
[2020-10-15] MEDS ORDERED: cefTRIAXone 1,000 MG in LIDOCAINE MPF 1% 2.1 ML INJ SCH (08:14)
[2020-10-15] MEDS ORDERED: cefTRIAXone 1,000 MG VIAL ONE (08:24)
[2020-10-15] MEDS ORDERED: LIDOCAINE MPF 1% 5 ML ONE (08:26)
--- NOTE | 2020-10-15 09:16 | NUR ---
Patient discharged with v/s stable. Written and verbal after care instructions given and explained. Patient alert, oriented and verbalized understanding of instructions. Ambulatory with steady gait. All questions addressed prior to discharge. ID band removed. Patient advised to follow up with PMD. Rx of ZITHROMAX, ALBUTEROL, TESSALON, ZINC & DEXAMETHASONE given. Patient educated on indication of medication including possible reaction and side effects. Opportunity to ask questions provided and answered.
[2020-10-15 09:18] VITALS: BP 116/65
== END 2020-10-15 09:16 | disposition home or self-care (01) ==
LOC: MED 04:15
DX: U07.1 COVID-19 (principal); J12.89 Other viral pneumonia; E11.9 Type 2 diabetes mellitus without complications; I10 Essential (primary) hypertension; Z79.899 Other long term (current) drug therapy
CPT/HCPCS: 36415; 36600; 71045; 80053; 82803; 85025; 85379; 87426; 87804; 93005; 96372; 99285; J0696; J2001